=== PATIENT | male | born 1955 | race Caucasian/White ===

== ENCOUNTER → 2020-10-31 | Day surgery (SDC) | payer MEDICAID, OTHER ==
[~2020-10-31] MED LIST: LIDOCAINE HCL 1% 20ML VIAL (Pyxis) INJ ONE
== END | disposition home or self-care (01) ==
LOC: RADANGIO 10:56
DX: Z45.2 Encounter for adjustment and management of vascular access device (principal); R93.7 Abnormal findings on diagnostic imaging of other parts of musculoskeletal system; Z79.899 Other long term (current) drug therapy
CPT/HCPCS: 36573; C1725; J3490